=== PATIENT | female | born 1985 | race Caucasian/White ===

== ENCOUNTER 2018-04-11 08:08 | Emergency (ER) | payer OTHER ==
[2018-04-11 08:57] LABS: URINE HCG POC HCG NEGATIVE (Negative)
[2018-04-11] MEDS: KETOROLAC 30 MG/ML INJ. IV ×2 (09:13)
[2018-04-11] MEDS: PROCHLORPERAZINE 10 MG/2 ML VIAL. IV ×2 (10:15)
[2018-04-11] MEDS: diphenhydrAMINE 50 MG/ML VIAL IVP ×2 (10:15)
[2018-04-11] MEDS: IV NORMAL SALINE 1000ML BAG 1,000 ML IV ×2 (10:16)
== END 2018-04-11 11:17 | disposition home or self-care (01) ==
LOC: ER 08:08
DX: G43.909 Migraine, unspecified, not intractable, without status migrainosus (principal); R51 Headache (principal); F41.9 Anxiety disorder, unspecified; F32.9 Major depressive disorder, single episode, unspecified; E11.9 Type 2 diabetes mellitus without complications
CPT/HCPCS: 81025; 96374; 96375; 99284; J0780; J1200; J1885; J7030

== ENCOUNTER → 2020-03-21 | Outpatient (CLI) | payer OTHER ==
[2018-04-11 09:01] VITALS: BP 163/103
[~2020-03-21] MED LIST: ALPR1TAB2 PO; GLIM4TAB PO; LURA80TA PO; METF10007 PO; PARO25TA11 PO; SUMA100T3 PO; TOPI100T42 PO
--- NOTE | 2020-03-24 11:09 | EEG ---
DATE OF SERVICE: 03/21/2020 ELECTROENCEPHALOGRAM REPORT EEG NUMBER: [id number]. OBJECTIVE: The patient is a 35-year-old female with syncope. DESCRIPTION OF PROCEDURE: This is a digital study. Electrodes are placed according to the international 10-20 system. Bipolar and referential montages are available. INTERPRETATION: The waking background consists of 10-11 Hz, 50-100 microvolt activity, symmetrically distributed over parietooccipital regions and reactive to eye opening. Hyperventilation and intermittent photic stimulation are noncontributory. Stage 1 sleep is achieved with normal electroencephalogram patterns. EKG monitoring is carried out with a single electrode, which fails to reveal any arrhythmia. IMPRESSION: This electroencephalogram with the patient awake and asleep is within normal limits. There is no focal, paroxysmal, or epileptiform activity. Thank you for letting us help with the patient's care. MECHE SWAN MD DR: PRASHANTH/efe JOB#: [id number] / [id number]
== END | disposition home or self-care (01) ==
LOC: RT 09:19
PROVIDERS: ATTEND Psychiatry & Neurology Neurology with Special Qualifications in Child Neurology
DX: G43.809 Other migraine, not intractable, without status migrainosus (principal); H53.8 Other visual disturbances; R42 Dizziness and giddiness; R55 Syncope and collapse
CPT/HCPCS: 95816

== ENCOUNTER → 2020-05-01 | Outpatient (CLI) | payer OTHER ==
[2018-04-11 09:01] VITALS: BP 163/103
[~2020-05-01] MED LIST changes: +ARIP20TA5 PO; +BUPR100T7 PO; +CLONAZEPAM1 MG PO; +FERR-36 PO; +GABA300C18 PO; +LAMO200T25 PO; +METF500T16 PO; +MISO200T4 PO; +OXYC1TAB15 PO; +TRAZ300T2 PO
== END | disposition home or self-care (01) ==
LOC: LAB 14:28
PROVIDERS: ATTEND Obstetrics & Gynecology
DX: Z01.818 Encounter for other preprocedural examination (principal); Z11.59 Encounter for screening for other viral diseases
CPT/HCPCS: C9803-CS; U0003-CS

== ENCOUNTER 2020-05-08 07:19 | Day surgery (SDC) | payer OTHER ==
[~2020-05-08] VITALS: Ht 172.7 cm; Wt 100.9 kg
[~2020-05-08 07:19] MED LIST changes: +BUPIVACAINE-EPI 0.25%-1:200000 MPF 30 ML VIAL. ONE; +HYDROmorphone 2 MG/ML VIAL IV PRN; +IV RINGERS,LACTATED 1000ML 1,000 ML IV SCH; +METHYLENE BLUE 0.5% 10ml AMPULE. ONE; +MORPHINE SULFATE 2 MG/ML VIAL. IV PRN; +ONDANSETRON PF 4 MG/2 ML VIAL. IV PRN; -OXYC1TAB15 PO; +PROCHLORPERAZINE 10 MG/2 ML VIAL. IV PRN; +VASOPRESSIN 20 UNIT/ML VIAL. ONE; +fentaNYL PF VIAL 100 MCG/2 ML VIAL IV PRN
[2020-05-08] MEDS ORDERED: ceFAZolin 2GM PREMIX 2 GM/50 ML BAG IV ONE (08:00)
[2020-05-08] MEDS: INSULIN LISPRO 100 UNIT/ML 3ML VIAL for OP,RR ONLY. SQ PRN ×2 (08:21→11:01)
[2020-05-08 08:24] LABS: BASO % 1 % (0-3); EOS % 1 % (0-3); HEMATOCRIT 36.6 % (36.0-47.0); LYMPH # 1.9 x10^3/uL (1.0-4.8); LYMPH % 32 % (24-48); MEAN CORPUSCULAR HEMOGLOBIN 28 pg (25-35); MEAN CORPUSCULAR HGB CONC 33 g/dL (31-37); MEAN CORPUSCULAR VOLUME 84 fL (79-100); MONO # 0.4 x10^3/uL (0.0-1.1); MONO % 7 % (0-9); NEUT # 3.6 x10^3/uL (1.8-7.7); NEUT % 60 % (31-73); PLATELET COUNT 168 x10^3/uL (140-400); RED BLOOD COUNT 4.35 x10^6/uL (3.50-5.40)
[2020-05-08] MEDS ORDERED: ROCURONIUM 50 MG/5 ML VIAL. ONE (08:48)
[2020-05-08] MEDS ORDERED: PROPOFOL 10 MG/ML (20ML) VIAL. IV ONE (08:49)
[2020-05-08] MEDS ORDERED: DEXAMETHASONE SOD PHOS 4 MG/ML VIAL ONE (08:49)
[2020-05-08] MEDS ORDERED: LIDOCAINE 2% PF 5 ML VIAL. ONE (08:49)
[2020-05-08] MEDS ORDERED: KETOROLAC 30 MG/ML VIAL. ONE (08:49)
[2020-05-08] MEDS ORDERED: ONDANSETRON PF 4 MG/2 ML VIAL. ONE (08:49)
[2020-05-08] MEDS ORDERED: fentaNYL PF VIAL 100 MCG/2 ML VIAL ONE (09:18)
[2020-05-08] MEDS ORDERED: GLYCOPYRROLATE 1 MG/5 ML VIAL. ONE (09:45)
[2020-05-08] MEDS ORDERED: NEOSTIGMINE METHYLSULFATE 5 MG/5 ML SYRINGE. ONE (09:46)
--- NOTE | 2020-05-08 10:38 | PDOC ---
BRIEF OPERATIVE NOTE Date: May 08, 2020 Pre-Op Diagnosis pelvic pain, desires sterility, menorrhagia Post-Op Diagnosis same, mild endometriosis with mild left sided adhesions Procedure Performed operative scope, BTL, vapo endometriosis and lysis of adhesions with hysteroscopy and novasure endometrial ablation Surgeon Dr. Debbie Gaspar Commercial Lending Relationship Manager MARNIE Skaggs Anesthesiologist Dr. Milan Anesthesia Type: General Blood Loss 5cc IV Fluid see anesthesia records Urine Output 250cc straight cath prior to procedure Specimens Obtained none Findings mildly enlarged RV uterus, normal bilateral tubes and ovaries, mild endo on left ovary, mild left sided adhesions of colon to sidewall, mild endo in post cul-de-sac, uterus sounded to 10cc, functional length 6.5, width 4.5 ablation time 55 seconds Complications none Operative Note [id number] DEBBIE GASPAR MD May 08, 2020 10:38
[2020-05-08] MEDS ORDERED: HYDROcodone/APAP 5/325MG 1 TAB TABLET PO PRN (10:45)
[2020-05-08] MEDS ORDERED: MAG HYDROX/ALUMINUM HYD/SIMETH 30 ML ORAL.SUSP PO PRN (10:45)
[2020-05-08] MEDS ORDERED: diphenhydrAMINE HCL 25 MG CAPSULE PO PRN (10:45)
[2020-05-08] MEDS ORDERED: 0.9 % SODIUM CHLORIDE 10 ML DISP.SYRIN. IV PRN (10:45)
[2020-05-08] MEDS ORDERED: diphenhydrAMINE 50 MG/ML VIAL IV PRN (10:45)
[2020-05-08] MEDS ORDERED: SIMETHICONE 80 MG TAB.CHEW PO PRN (10:45)
[2020-05-08] MEDS ORDERED: NALOXONE 0.4 MG/ML VIAL. IV PRN (10:45)
[2020-05-08] MEDS ORDERED: CALCIUM CARBONATE 500 MG TAB.CHEW PO PRN (10:45)
[2020-05-08] MEDS: fentaNYL PF VIAL 100 MCG/2 ML VIAL IV PRN ×2 (10:46→10:54)
[2020-05-08] MEDS ORDERED: OXYC1TAB15 PO (10:59)
[2020-05-08] MEDS ORDERED: INSULIN LISPRO 100 UNIT/ML 3ML VIAL for OP,RR ONLY. SQ ONE (11:00)
[2020-05-08 11:20] VITALS: BP 120/68
--- NOTE | 2020-05-08 11:51 | OP ---
DATE OF SURGERY: 05/08/2020 PREOPERATIVE DIAGNOSES: Multiparity, desiring permanent sterility, menorrhagia and pelvic pain. POSTOPERATIVE DIAGNOSES: Multiparity, desiring permanent sterility, menorrhagia and pelvic pain with mild endometriosis and mild left-sided adhesions. PROCEDURE: Operative laparoscopy, bilateral tubal ligation, vaporization of endometriosis, lysis of adhesions and a hysteroscopy with NovaSure endometrial ablation. SURGEON: Kailash Gaspar MD VESSEL CAPTAIN: MARNIE Estrada ANESTHESIOLOGIST: Christian Milan MD ANESTHESIA: General. ESTIMATED BLOOD LOSS: 5 mL. URINE OUTPUT: 250 mL, straight cath, prior to procedure. IV FLUIDS: Please see anesthesia records. SPECIMENS: None. FINDINGS: A mildly enlarged retroverted uterus. Normal bilateral tubes and ovaries. She had mild endometriosis on the left ovary, mild left-sided adhesions of the colon to the sidewall, mild endometriosis in the posterior cul-de-sac. She had a mildly enlarged retroverted uterus that sounded to 10 cm, so the functional length by the NovaSure was set at 6.5, width 4.5, ablation time was 55 seconds. COMPLICATIONS: None. DESCRIPTION OF PROCEDURE: This patient was taken to the operating room, where general anesthesia was placed. The patient was placed in a dorsal lithotomy position in [facility]. The patient's abdomen and vagina were both prepped and draped in the normal sterile fashion and a straight cath urine was done with 250 mL urine output prior to my arrival. Upon my arrival, a timeout was performed. Once everyone agreed on patient, antibiotics, procedure, site and surgeon, the procedure was begun. We started with a bivalve speculum in the patient's vagina. A single-tooth tenaculum was used to grasp the anterior lip of the cervix. The Hegar dilators were used to dilate up to an 8-9. She sounded to 10 cm. The Valtchev uterine manipulator was placed through the endocervical os, locked on the single-tooth tenaculum, and the bivalve speculum was then removed. Top gloves were discarded and changed. Attention was then turned to the abdomen, where a small infraumbilical skin incision was made with the scalpel. The 5 mm Visiport was used directly to enter the abdominal cavity. Opening patient pressure was 5-6 mmHg. Carbon dioxide gas was used to then appropriately insufflate the abdominal cavity to maintain a pressure of 15 mmHg. The patient was placed in Trendelenburg position. Overheads were dimmed. The 5 mm port was placed, making a small incision above the suprapubic bone and placed under direct visualization; 4-5 mL of air was placed in the trocar cuff here. The scope was moved and looked at the umbilical port. It was in good placement in that port. Also, the trocar cuff was insufflated with 4-5 mL of air. At this point, the initial inspection was performed. Normal right upper quadrant; mild endo on the left ovary, but normal bilateral tubes; normal right ovary; ureters were seen low in the pelvis, normal; mildly enlarged retroverted uterus; normal bladder; and endo in the posterior cul-de-sac and on the uterosacral ligament under the uterus; and some left-sided adhesions of the colon to the left lower abdominal wall right above the infundibulopelvic ligament area. So, at this point, a right lower quadrant port was placed as well, there were no adhesions, transilluminating the abdominal wall, finding an area clear of any vasculature, making a small incision under direct visualization, insufflating that trocar with 4-5 mL of air. This was again a 5 mm atraumatic trocar placed under direct visualization without difficulty. At this point, the uterus was elevated. The posterior endometriosis was first cauterized and taking care of on the uterosacral ligament and in the posterior cul-de-sac. She also had a few, like, phleboliths, 1 on the colon going down into the rectum and 1 on the posterior uterus. The endometriosis on the left ovary was also cauterized. Once the endo was done, I used the Maryland to kind of help put tension on the filmy part, pulling the colon away from the sidewall and using the monopolar tip to cut right on the peritoneal edge and the filmy area to release the adhesion and gently pull them down off the sidewall. So, we did adhesiolysis, we did the vaporization of endo and then we ended with the bilateral tubal ligation. Mid ampullary area of both tubes were cauterized in 3 places, then cauterizing and cutting and burning one more time through and through till they no longer connected on both sides, and taking pictures of both tubes. Once this was done, the suprapubic port air was taken out. The trocar was deflated and removed. It was hemostatic. Same thing on the right lower quadrant, deflated the 4-5 mL of air out of the balloon and it was removed, hemostatic. Then, the trocar was deflated in the umbilical one, but the gas was released from this port first, then it was removed. All 3 port sites were closed with 4-0 nylon at the skin and injected with local. Attention was then turned vaginally, where the Valtchev was removed. A weighted speculum was placed in the patient's vagina. The hysteroscopy was performed. She had some tissue, but no other gross changes to the uterus. So, at this point, the NovaSure was obtained. The functional length was set at 6.5, she had already been dilated, the width settled at 4.5. The device was enabled. Cavity assessment check was performed. Once it passed the cavity assessment check, it went straight into the ablation process. Initially, it went off and the vacuum was on backwards that lasted 5 or 10 seconds, went off. So, it was flipped, restarted and then went another 45 seconds. So, it was about 55 seconds total for the ablation time. The device was removed. The tenaculum was removed. There was no active bleeding. So, the procedure was ended. Speculum was removed. All sponge, lap and needle counts were correct by OR personnel, and the patient is currently being awakened from anesthesia. KAILASH GASPAR MD DR: TANNER/efe JOB#: [id number] / [id number]
== END 2020-05-08 11:45 | disposition home or self-care (01) ==
LOC: SURG 07:19
PROVIDERS: ATTEND Obstetrics & Gynecology
DX: N92.0 Excessive and frequent menstruation with regular cycle (principal); Z64.1 Problems related to multiparity; N80.0 Endometriosis of uterus; N97.9 Female infertility, unspecified; F41.9 Anxiety disorder, unspecified; G43.909 Migraine, unspecified, not intractable, without status migrainosus
CPT/HCPCS: 36415; 58563; 58670; 81025; 82962; 85025; A7015; J0696; J1100; J1815; J1885; J2405; J2704; J2710; J3010; J3490; J7030; Q9968

== ENCOUNTER → 2021-01-09 | Outpatient (CLI) | payer OTHER ==
[~2021-01-09] MED LIST changes: -BUPIVACAINE-EPI 0.25%-1:200000 MPF 30 ML VIAL. ONE; +DEXT10TA23 PO; -HYDROmorphone 2 MG/ML VIAL IV PRN; -IV RINGERS,LACTATED 1000ML 1,000 ML IV SCH; -METHYLENE BLUE 0.5% 10ml AMPULE. ONE; +MISO200T16 PO; -MISO200T4 PO; -MORPHINE SULFATE 2 MG/ML VIAL. IV PRN; -ONDANSETRON PF 4 MG/2 ML VIAL. IV PRN; +OXYC1TAB15 PO; -PROCHLORPERAZINE 10 MG/2 ML VIAL. IV PRN; -VASOPRESSIN 20 UNIT/ML VIAL. ONE; -fentaNYL PF VIAL 100 MCG/2 ML VIAL IV PRN
[2021-01-09 11:58] LABS: BASO % 0 % (0-3); EOS % 1 % (0-3); HEMATOCRIT 37.7 % (36.0-47.0); HEMOGLOBIN 12.3 g/dL (12.0-15.5); LYMPH # 1.6 x10^3/uL (1.0-4.8); LYMPH % 31 % (24-48); MEAN CORPUSCULAR HEMOGLOBIN 28 pg (25-35); MEAN CORPUSCULAR HGB CONC 33 g/dL (31-37); MEAN CORPUSCULAR VOLUME 85 fL (79-100); MONO # 0.3 x10^3/uL (0.0-1.1); MONO % 6 % (0-9); NEUT # 3.1 x10^3/uL (1.8-7.7); NEUT % 61 % (31-73); PLATELET COUNT 182 x10^3/uL (140-400); RED BLOOD COUNT 4.46 x10^6/uL (3.50-5.40); RED CELL DISTRIBUTION WIDTH 14.6 % (11.5-14.5); WHITE BLOOD COUNT 5.1 x10^3/uL (4.0-11.0)
--- NOTE | 2021-01-09 11:59 | EKG ---
[facility] [address] [place] [address] Test Date: 2021-01-09 Test Time: 11:51:22 Pat Name: CHENCHO HAILE Department: Room: Gender: F Front Edger: : 1985 Requested By: KAILASH GASPAR Order Number: [id number] Reading MD: Fernando Arteaga MD Measurements Intervals [place] Rate: 51 P: 42 WV: 134 QRS: 10 QRSD: 90 T: 21 QT: 450 QTc: 417 Interpretive Statements SINUS RHYTHM POOR R-WAVE PROGRESSION RBBB Electronically Signed On 01-12-2021 16:14:58 FEATHERER by Fernando Arteaga MD
[2021-01-09 12:03] LABS: BILIRUBIN,URINE NEGATIVE (NEG); CLARITY,URINE CLEAR; COLOR,URINE YELLOW; NITRITE,URINE NEGATIVE (NEG); PROTEIN,URINE NEGATIVE (NEG-TRACE); UROBILINOGEN,URINE 0.2 mg/dL (0.2 mg/dL)
[2021-01-09 12:13] LABS: ALBUMIN 3.8 g/dL (3.4-5.0); CALCIUM 8.8 mg/dL (8.5-10.1); CREATININE 0.8 mg/dL (0.6-1.0); GFR 81.2; TOTAL BILIRUBIN 0.6 mg/dL (0.2-1.0); TOTAL PROTEIN 7.5 g/dL (6.4-8.2)
[2021-01-09 12:18] LABS: BACTERIA,URINE 0 /HPF (0-FEW); RBC,URINE OCC /HPF (0-2); WBC,URINE OCC /HPF (0-4)
--- NOTE | 2021-01-09 13:05 | RAD ---
INDICATION: Reason: PRE-OP HYSTERECTOMY 01/14. Instructions: / History: COMPARISON: February 2015 FINDINGS: 2 view of chest obtained. No focal airspace consolidation or pulmonary edema. Cardiac silhouette is similar to prior. Mild dege nerative changes the spine with osteophyte formation IMPRESSION: * No focal airspace consolidation or edema. Electronically signed by: Dl Dewitt MD (01/09/2021 1:03 PM) [id number]
== END ==
LOC: SURGPAT 11:11
PROVIDERS: ATTEND Obstetrics & Gynecology
DX: Z01.818 Encounter for other preprocedural examination (principal); M47.814 Spondylosis without myelopathy or radiculopathy, thoracic region; M25.78 Osteophyte, vertebrae; I45.10 Unspecified right bundle-branch block; E11.9 Type 2 diabetes mellitus without complications
CPT/HCPCS: 71046; 80053; 81001; 83036; 85025; 93005; U0003

== ENCOUNTER 2021-01-14 08:22 | Observation (INO) | payer OTHER ==
[2021-01-14] VITALS (8 sets, daily range): BP systolic 100–116; BP diastolic 63–75
[~2021-01-14] VITALS: Ht 172.7 cm; Wt 100.2 kg
[~2021-01-14 08:22] MED LIST changes: +IV RINGERS,LACTATED 1000ML 1,000 ML IV SCH; +MORPHINE SULFATE 2 MG/ML VIAL. IVP PRN; +PROCHLORPERAZINE 10 MG/2 ML VIAL. IVP PRN; +fentaNYL PF VIAL 100 MCG/2 ML VIAL IVP PRN
[2021-01-14] MEDS ORDERED: PROPOFOL 10 MG/ML (20ML) VIAL. IV ONE (08:24)
[2021-01-14] MEDS ORDERED: ONDANSETRON PF 4 MG/2 ML VIAL. ONE (08:24)
[2021-01-14] MEDS ORDERED: DEXAMETHASONE SOD PHOS 4 MG/ML VIAL ONE (08:24)
[2021-01-14] MEDS ORDERED: LIDOCAINE 2% PF 5 ML VIAL. ONE (08:24)
[2021-01-14] MEDS ORDERED: ROCURONIUM 50 MG/5 ML VIAL. ONE (08:24)
[2021-01-14] MEDS ORDERED: MIDAZOLAM HCL/PF 2 MG/2 ML VIAL. ONE (08:26)
[2021-01-14] MEDS ORDERED: fentaNYL PF VIAL 100 MCG/2 ML VIAL ONE ×2 (08:26→11:01)
[2021-01-14] MEDS ORDERED: INSULIN LISPRO 100 UNIT/ML 3ML VIAL for OP,RR ONLY. SQ PRN (09:00)
[2021-01-14] MEDS ORDERED: INDIGOTINDISULFONATE SODIUM 40 MG/5 ML AMPUL. ONE (10:12)
[2021-01-14] MEDS ORDERED: ESTROGENS, CONJ VAGINAL CREAM 30GM TUBE. ONE (10:12)
[2021-01-14] MEDS ORDERED: BUPIVACAINE-EPI 0.25% 30 ML VIAL KIT. ONE (10:12)
[2021-01-14] MEDS ORDERED: SEVOFLURANE > 120 MINUTES. IH ONE (11:21)
[2021-01-14] MEDS ORDERED: NEOSTIGMINE METHYLSULFATE 5 MG/5 ML SYRINGE. ONE (11:23)
--- NOTE | 2021-01-14 12:56 | PDOC ---
BRIEF OPERATIVE NOTE Date: Jan 14, 2021 Pre-Op Diagnosis endometriosis, pelvic pain Post-Op Diagnosis same Procedure Performed LAVH/BSO Surgeon Dr. Clark Hot Plate Plywood Press Operator MARNIE Hill Anesthesiologist Dr. Milan Anesthesia Type: General Blood Loss 50cc IV Fluid 700cc Urine Output 300cc clear via moulton Specimens Obtained cervix, uterus, bilateral tubes and ovaries, round hard deposit on left sidewall below ureter Findings RV uterus, normal bilateral tubes and ovaries; small calcium deposit on left sidewall removed and one on larrge bowel seen also Complications none Operative Note [id number] KAILASH CLARK MD Jan 14, 2021 12:56
[2021-01-14] MEDS ORDERED: LACTULOSE 20 GM/30 ML SOLUTION. PO PRN (13:00)
[2021-01-14] MEDS ORDERED: CALCIUM CARBONATE 500 MG TAB.CHEW PO PRN (13:00)
[2021-01-14] MEDS ORDERED: HYDROcodone/APAP 5/325MG 1 TAB TABLET PO PRN (13:00)
[2021-01-14] MEDS ORDERED: NALOXONE 0.4 MG/ML VIAL. IV PRN (13:00)
[2021-01-14] MEDS ORDERED: ZOLPIDEM 5 MG TABLET. PO PRN (13:00)
[2021-01-14] MEDS ORDERED: diphenhydrAMINE HCL 25 MG CAPSULE PO PRN (13:00)
[2021-01-14] MEDS ORDERED: ONDANSETRON PF 4 MG/2 ML VIAL. IV PRN (13:00)
[2021-01-14] MEDS ORDERED: MAG HYDROX/ALUMINUM HYD/SIMETH 30 ML ORAL.SUSP PO PRN (13:00)
[2021-01-14] MEDS ORDERED: diphenhydrAMINE 50 MG/ML VIAL IV PRN (13:00)
[2021-01-14] MEDS ORDERED: 0.9 % SODIUM CHLORIDE 10 ML DISP.SYRIN. IV PRN (13:00)
[2021-01-14] MEDS ORDERED: SIMETHICONE 80 MG TAB.CHEW PO PRN (13:00)
[2021-01-14] MEDS ORDERED: MAGNESIUM HYDROXIDE 2,400 MG/30 ML ORAL.SUSP. PO PRN (13:00)
[2021-01-14] MEDS ORDERED: INSULIN LISPRO 100 UNIT/ML 3ML VIAL for OP,RR ONLY. SQ ONE (13:15)
[2021-01-14] MEDS: MORPHINE SULFATE 2 MG/ML VIAL. IV PRN ×3 (13:29→23:41)
--- NOTE | 2021-01-14 13:36 | OP ---
DATE OF SURGERY: 01/14/2021 PREOPERATIVE DIAGNOSIS: Known endometriosis by laparoscopy with pelvic pain, desiring definitive therapy. POSTOPERATIVE DIAGNOSIS: Known endometriosis by laparoscopy with pelvic pain, desiring definitive therapy.. PROCEDURE: Laparoscopic-assisted vaginal hysterectomy, bilateral salpingo-oophorectomy, and removal of the calcium or hard deposit on the left pelvic sidewall. SURGEON: Kailash Clark MD OPEN HEARTH HELPER: MARNIE Santiago ANESTHESIOLOGIST: Christian Milan MD ANESTHESIA: General. ESTIMATED BLOOD LOSS: 50 mL. URINE OUTPUT: 300 mL clear via Aceves catheter. INTRAVENOUS FLUIDS: 700 mL. SPECIMENS: Cervix, uterus, bilateral tubes and ovaries and that little round hard deposit on the left sidewall and the deposit on the left sidewall was below the ureter. FINDINGS: A retroverted uterus, normal bilateral tubes and ovaries. A small calcium deposit on the left sidewall that was removed as well as one on the large bowel was also seen, but that one was not touched. COMPLICATIONS: None. DESCRIPTION OF PROCEDURE: This patient was taken to the operating room where general anesthesia was placed. The patient was placed in the dorsal lithotomy position in [facility]. The patient's abdomen and vagina were both prepped and draped in the normal sterile fashion and a Aceves catheter was inserted under sterile technique. Upon my arrival, a timeout was performed. Once everyone agreed on the patient, the site, the procedure, and antibiotics, the procedure was initiated. A bivalve speculum was placed in the patient's vagina. A single-tooth tenaculum was used to grasp the anterior lip of the cervix. A 10 mL of 0.25% Marcaine with epinephrine was used to circumferentially inject around the cervix for both hemodissection and hemostatic purposes later. The Valtchev uterine manipulator was placed through the endocervical os, locked on the single tooth tenaculum and the bivalve speculum was then removed. Top gloves were discarded and changed. She was injected over her prior incision site infraumbilically. Then, a small incision was made over the existing scar. Curved Xin was used to dissect through the subcuticular layer to the fascia. The 5 mm Visiport was used to directly enter the abdominal cavity. Opening patient pressure was 5-6 mmHg. Carbon dioxide gas was used to then appropriately insufflate the abdominal cavity to maintain a pressure of 15 mmHg. The patient was placed in Trendelenburg position. Her right lower quadrant port was seen from her prior laparoscopy. It was clear of adhesions on the inside, so it was also injected. Small incision was made over it and it was placed under direct visualization as well. Then, the left side was done after transilluminating the abdominal wall, finding an area clear of any vasculature, injecting it, making a small incision and placing the 5 mm trocar under direct visualization. The right and left lower quadrant ones were insufflated with 4-5 mL of air while watching. The camera was then moved laterally to one of the ports to look at the umbilical port. Once it was clear, it also was filled with the 4-5 mL of air in the trocar cuff. Camera was moved back to the midline. The patient again was in Trendelenburg and we looked at both tubes and ovaries, looked under it. There was a calcium deposit on the left sidewall that was grasped with a Maryland and easily taken off and put in the posterior cul-de-sac. The ureter was seen coursing above it on the left side. Ureter was also seen on the right side. Both ovaries were well out of the way and above the ureters as she desired to have both tubes and ovaries out. So, starting on the left side, elevating the left tube and ovary, staying high on the infundibulopelvic ligament, cauterizing and cutting with the LigaSure, going all the way over, crossing the left round ligament, cauterizing and cutting, then pushing the uterus cephalad and creating that bladder flap sharply by elevating it with the Maryland and using the monopolar hook to cut across and pulled gently pull down. Then the right side tube and ovary were elevated. Again, the ureter was seen below it, staying high on the IP ligament, cauterizing and cutting, taking the tube and ovary per patient request, going all the way over to the uterus, then crossing the right round ligament as well, going down and further meeting that bladder flap anteriorly. Once all of this was done, the uterine vessels were obtained on the right side, crossing and then staying inside this pedicle kind of going posterior down and staying right on the cervix and inside that going through the cardinal and broad ligaments, cauterizing and cutting until right above the level of the uterosacral and then crossing contralaterally hugging the cervix and uterus, getting the uterine, staying inside that pedicle and watching the cervix bulge posteriorly and going down through the cardinal and broad ligament, staying vertical right inside that making sure the bladder was down anteriorly and then hugging the cervix posteriorly, cauterizing and cutting until right above the uterosacral and the left side as well. Once all of this was done, the uterus was free and it was completely mobile and blanched, all instruments were removed from the abdomen and attention was turned vaginally. The single tooth and Valtchev were removed. A weighted speculum was placed in the patient's vagina. Thyroid Yaneth clamps were placed on the anterior and posterior lips of the cervix respectively. A scalpel was used to make a circumferential incision in the cervix. An open Ray-Deandre 4 x 4 was used to gently push up the anterior bladder peritoneum and the anterior cul-de-sac was digitally and bluntly entered. The Ray-Deandre was removed and the curved Umer was placed in the anterior cul-de-sac. Cervix was elevated and the posterior cul-de-sac was sharply entered with curved Gilbert scissors. Once this was done, the posterior peritoneum was attached to the posterior cuff with an 0 Vicryl and was tagged with a curved Xin clamp and the needle was cut and passed off. Once this was done, the short weighted speculum was removed and replaced with the long weighted Mg speculum in the posterior cul-de-sac. Curved Elizabeth clamps x 2 were placed on the patient's left uterosacral ligament where they were doubly clamped with curved Heaneys, cut with curved Gilbert scissors and suture ligated x 2 with 0 Vicryl. Second one was taken through the vaginal cuff securing uterosacral ligament to the vaginal cuff, tagging it with a straight Xin clamp and cutting and passing the needle off. This was done exactly the same on the right side, double clamping the uterosacrals with curved Elizabeth's, cutting with curved Gilbert scissors, suture ligating x 2 with 0 Vicryl, taking the second one through the vaginal cuff, securing uterosacral ligament to the vaginal cuff, tagging it with a straight Xin clamp and cutting and passing the needle off. The remaining pedicle on both sides was delineated with the right angle Mixter. The vaginal LigaSure was used to cauterize and cut the remaining pedicle. Cervix, uterus, bilateral tubes and ovaries were delivered in total and passed off for permanent pathology. Also, that little round phlebolith had been seen as soon as I entered the posterior cul-de-sac initially and it was cut and passed off that calcium kind of deposit from the left sidewall. At this point, a sponge stick was used to push up the bowel and the long Allis was used to grasp the anterior bladder peritoneum. The pedicles were examined. Once they were hemostatic, a 2-0 Vicryl was taken through the anterior bladder peritoneum, left uterosacral ligament, posterior peritoneum and right uterosacral ligament, thus closing the peritoneum in a pursestring like fashion. Before doing this, I did place a little interrupted sutures securing the lateral peritoneal edges to the vaginal cuff and then I closed the peritoneum. The right and left uterosacral tags were clipped. A full length 2-0 Vicryl was used to close the cuff in a running locked fashion and an imbricating stitch in the middle was placed for excellent hemostasis and results. Once this was done, a sponge stick was used to examine the cuff and it was hemostatic. All sponge, lap and needle counts were correct x 2 by OR personnel. At this point, all gloves were discarded and changed and attention was turned back above for a second look. The patient was placed back in Trendelenburg. Overhead lights were dimmed. Gas was reinsufflated and the scope was inserted down the trocar of the umbilical port and hemostasis was indeed assured. There was no bleeding. Right and left pericolic gutters, cul-de-sac, everything was dry and clear. Copious irrigation revealed hemostasis as well as clear fluid. Tisseel was placed over the remaining pedicles with excellent results. Right and left lower quadrant ports, the air was taken out of them and they were deflated. They were taken out under direct visualization and they were hemostatic. The gas was taken out of the trocar cuff on the umbilical port. Gas was released from this port. Once all the gas was out, it was removed as well. All three port sites were closed with 4-0 nylon at the skin and they had already been injected with local at the beginning prior to the incisions. At this point, the patient was awakened from anesthesia and is being brought to recovery room in stable condition. KAILASH CLARK MD DR: TANNER/efe JOB#: [id number] / [id number]
[2021-01-14] MEDS ORDERED: HYDROmorphone 2 MG/ML VIAL ONE (13:47)
[2021-01-14] MEDS: HYDROmorphone 2 MG/ML VIAL IVP PRN ×2 (13:48→14:04)
--- NOTE | 2021-01-14 14:30 | NUR ---
Arrived to unit by bed from PACU. Drowsy but awakens easily and falls back to sleep. No c/o at this time. Abdominal Lap sites are D/I x's 3 and has ice pack on SCD's on bilaterally. IVF's intact and infusing. O2 at 2l per n/c and sating at 95%. Side rails up x's 2 with call light in reach. Spouse at bedside. Cont. monitor.
[2021-01-14] MEDS ORDERED: ESTRADIOL WEEKLY 0.1 MG PATCH. TD SCH (15:00)
[2021-01-14] MEDS: oxyCODONE/APAP 5/325 1 TAB TABLET PO PRN ×2 (17:06→21:21)
--- NOTE | 2021-01-14 18:10 | NUR ---
Ambulated to bathroom and unable to void at this time. IVF's infusing and encouraged to increase po fluids. Cont. monitor.
--- NOTE | 2021-01-14 20:00 | NUR ---
Patient has flat affect and is poor historian. 3 lap site dressings D/I. Spotty bloody drainage to pad. IVF patent per 24g cath in finger.
[2021-01-15] VITALS (7 sets, daily range): BP systolic 74–115; BP diastolic 40–71
--- NOTE | 2021-01-15 02:05 | NUR ---
Assisted to toilet by NEIDA Fernandez, who said she ambulated without difficulty. Patient pulled bathroom call light, this RN found patient sitting on floor, seemingly asleep. obed Flores supervisor grips, Rebecca CARRASQUILLO and I assisted this patient to recliner then to bed. Patient states she "just fell asleep while standing in the bathroom." States she "hit her head on the metal thing behind the toilet." HELEN, thin red abrasion along right jaw. No increase in vag bleeding. Patient oriented.
[2021-01-15] MEDS: oxyCODONE/APAP 5/325 1 TAB TABLET PO PRN ×3 (02:54→08:32)
--- NOTE | 2021-01-15 03:10 | NUR ---
Dr. Clark informed of events by obed Flores. Order's rec'd.
--- NOTE | 2021-01-15 03:15 | NUR ---
Dr. Ibanez consulted. obed Flores super notified him of events/consult. Orders rec'd.
--- NOTE | 2021-01-15 03:42 | NUR ---
Assisted to w/c, taken to CT per WC w/ O2 by obed Flores. Orders to transfer pt to [facility], room 536.
--- NOTE | 2021-01-15 03:51 | NUR ---
Transfer to 536 per w/c.
--- NOTE | 2021-01-15 03:52 | RAD ---
STUDY: CT head without contrast INDICATION: Syncope. Fall. COMPARISON: None. TECHNIQUE: Axial CT imaging through the head without the use of intravenous contrast. Sagittal and co simi reformats were obtained. One or more of the following individualized dose reduction techniques were utilized for this examinat ion: 1. Automated exposure control 2. Adjustment of the mA and/or kV according to patient size 3. Use of iterative reconstruction technique. FINDINGS: No acute intracranial hemorrhage. No mass effect, midline shift or hydrocephalus. Cheney-white matter d ifferentiation is maintained. Unremarkable calvarium. No layering fluid seen within the visualized paranasal sinuses. Unremarkable mastoid air cells and middle ears. IMPRESSION: No acute intracranial abnormality by CT. Electronically signed by: JEANNE LINDER MD (01/15/2021 3:50 AM) [facility]
--- NOTE | 2021-01-15 04:00 | NUR ---
Rec'd patient, America Briceño, 35 y/o, to room 536, per w/c, accompanied by JOLENE Flores, assisted to bed using gait belt, engineering department chair placed, vitals obtained=T 99.0, 99% on 4L N/C, B/p 103/58 (NS bolus completed), HR 75, RR 20, Oxygen turned down to 3 Liters, monitoring-sr with occ haylee, PVC's, personal belongings with patient, plan of care discussed,
[2021-01-15 04:04] LABS: BASO % 0 % (0-3); EOS % 0 % (0-3); HEMATOCRIT 36.8 % (36.0-47.0); HEMOGLOBIN 12.2 g/dL (12.0-15.5); LYMPH # 0.9 x10^3/uL (1.0-4.8); LYMPH % 8 % (24-48); MEAN CORPUSCULAR HEMOGLOBIN 28 pg (25-35); MEAN CORPUSCULAR HGB CONC 33 g/dL (31-37); MEAN CORPUSCULAR VOLUME 85 fL (79-100); MONO # 0.4 x10^3/uL (0.0-1.1); MONO % 4 % (0-9); NEUT # 10.2 x10^3/uL (1.8-7.7); NEUT % 88 % (31-73); PLATELET COUNT 172 x10^3/uL (140-400); RED BLOOD COUNT 4.34 x10^6/uL (3.50-5.40); RED CELL DISTRIBUTION WIDTH 14.5 % (11.5-14.5); WHITE BLOOD COUNT 11.7 x10^3/uL (4.0-11.0)
[2021-01-15 04:16] LABS: CALCIUM 8.3 mg/dL (8.5-10.1); CREATININE 0.9 mg/dL (0.6-1.0); GFR 70.8; POTASSIUM 4.4 mmol/L (3.5-5.1)
--- NOTE | 2021-01-15 04:30 | NUR ---
Patient is assessed, (lap sites x 3 assessed upon transfer to unit, small shadow drng on one site), percocet x 1 given, as she had one, and with transfer, her pain increased. was given choice of lortab or percocet, and she said the percocet had helped, discussed the use of IS, the mechanism is taken out of the bag, placed on the bedside table, she verbalizes she will use it. call light at bedside, bed alarm is engaged.
[2021-01-15 04:42] LABS: % BANDS 7 % (0-9); % BASOS 1 % (0-3); % LYMPHS 12 % (24-48); % MONOS 5 % (0-10); % SEGS 75 % (35-66)
[2021-01-15 04:43] LABS: PLT ESTIMATE ADEQUATE (ADEQUATE); TOXIC VACUOLATION SLIGHT
[2021-01-15] MEDS ORDERED: ARIPiprazole 5 MG TABLET PO SCH (08:00)
--- NOTE | 2021-01-15 10:50 | NUR ---
SS following for discharge planning. SS reviewed pt chart and discussed with pt RN. Pt is from home and is currently on room air. Probable discharge to home with self care today.
--- NOTE | 2021-01-15 11:12 | PDOC ---
[employer] PROGRESS NOTE Date of Service DOS: DATE: 01/15/21 TIME: 11:09 Chief Complaint Chief Complaint Endometriosis and pelvic pain History of Present Illness History of Present Illness 01/15/2021 Patient seen and examined Patient had loved one present, we discussed d/c later today if cleared by surgery DWRN Chart reviewed Vitals/I&O Vitals/I&O: Vital Signs Date Time Temp Pulse Resp B/P (MAP) Pulse Ox O2 Delivery O2 Flow Rate FiO2 01/15/21 09:58 Nasal Cannula 2.0 01/15/21 07:00 98.7 81 18 104/58 (73) 99 98.7 I & O 01/14/21 01/14/21 01/15/21 15:00 23:00 07:00 Intake Total 900 ml 880 ml 600 ml Output Total 350 ml 400 ml 500 ml Balance 550 ml 480 ml 100 ml Physical Exam General: Alert, Cooperative, No acute distress Heart: Regular rate, Normal S1, Normal S2 Lungs: Clear Abdomen: Other (3 laproscopic incision sites healing well) Extremities: No tenderness/swelling Skin: No significant lesion Labs Labs: Laboratory Tests Test 01/14/21 13:03 01/14/21 16:48 01/15/21 02:18 01/15/21 03:50 Glucose (Fingerstick) 193 mg/dL (70-99) 157 mg/dL (70-99) 146 mg/dL (70-99) White Blood Count 11.7 x10^3/uL (4.0-11.0) Red Blood Count 4.34 x10^6/uL (3.50-5.40) Hemoglobin 12.2 g/dL (12.0-15.5) Hematocrit 36.8 % (36.0-47.0) Mean Corpuscular Volume 85 fL (79-100) Mean Corpuscular Hemoglobin 28 pg (25-35) Mean Corpuscular Hemoglobin Concent 33 g/dL (31-37) Red Cell Distribution Width 14.5 % (11.5-14.5) Platelet Count 172 x10^3/uL (140-400) Neutrophils (%) (Auto) 88 % (31-73) Lymphocytes (%) (Auto) 8 % (24-48) Monocytes (%) (Auto) 4 % (0-9) Eosinophils (%) (Auto) 0 % (0-3) Basophils (%) (Auto) 0 % (0-3) Neutrophils # (Auto) 10.2 x10^3/uL (1.8-7.7) Lymphocytes # (Auto) 0.9 x10^3/uL (1.0-4.8) Monocytes # (Auto) 0.4 x10^3/uL (0.0-1.1) Eosinophils # (Auto) 0.0 x10^3/uL (0.0-0.7) Basophils # (Auto) 0.0 x10^3/uL (0.0-0.2) Segmented Neutrophils % 75 % (35-66) Band Neutrophils % 7 % (0-9) Lymphocytes % 12 % (24-48) Monocytes % 5 % (0-10) Basophils % 1 % (0-3) Toxic Vacuolation Slight Platelet Estimate Adequate (ADEQUATE) Sodium Level 138 mmol/L (136-145) Potassium Level 4.4 mmol/L (3.5-5.1) Chloride Level 103 mmol/L (98-107) Carbon Dioxide Level 28 mmol/L (21-32) Anion Gap 7 (6-14) Blood Urea Nitrogen 6 mg/dL (7-20) Creatinine 0.9 mg/dL (0.6-1.0) Estimated GFR (Cockcroft-Gault) 70.8 Glucose Level 139 mg/dL (70-99) Calcium Level 8.3 mg/dL (8.5-10.1) Test 01/15/21 07:40 Glucose (Fingerstick) 125 mg/dL (70-99) Review of Systems Review of Systems: Patient denied fever or nausea Assessment and Plan Assessmemt and Plan Assessment Endometriosis Pelvic pain UTI Anxiety Migraines Dysmenorrhea Menorrhagia Sterilization Plan D/c later today if cleared with surgery Cont pain medication PRN Cont DVT prophylaxis Cont home meds Full code Comment Review of Relevant I have reviewed the following items kelsie (where applicable) has been applied. Medications: Current Medications Medications (Trade) Dose Ordered Sig/Nuzhat Route PRN Reason Start Time Stop Time Status Last Admin Dose Admin Zolpidem Tartrate (Ambien) 5 mg PRN QHS PRN PO INSOMNIA 01/14/21 13:00 01/14/21 21:21 Potassium Chloride/Sodium Chloride 1,000 ml @ 125 mls/hr Q8H IV 01/14/21 13:00 01/14/21 14:45 Morphine Sulfate (Morphine Sulfate) 2 mg PRN Q1HR PRN IV PAIN SEVERE 01/14/21 13:00 01/14/21 23:41 Oxycodone/ Acetaminophen (Percocet 5/325) 2 tab PRN Q4HRS PRN PO MODERATE PAIN, SEVERE PAIN 01/14/21 13:00 01/15/21 08:32 Estradiol (Climara Weekly) 0.1 mg WEEKLY TD 01/14/21 15:00 01/14/21 17:08 Justifications for Admission Other Justification MICHELET LIU III DO Jan 15, 2021 11:12
--- NOTE | 2021-01-15 11:55 | NUR ---
Discharge Note: CHENCHO HAILE Discharge instructions and discharge home medications reviewed with Patient and a copy given. All questions have been answered and understanding verbalized. The following instructions and handouts were given: discharge instructions, education and follow up recommendations. Discontinued lines and drains: Peripheral IV discontinued intact. Patient discharged to Home or Self Care with Spouse via Wheelchair
[2021-01-15] MEDS ORDERED: FERROUS SULFATE 325 MG TABLET. PO SCH (12:00)
[2021-01-15] MEDS ORDERED: lamoTRIgine 100 MG TABLET. PO SCH (12:00)
[2021-01-15] MEDS ORDERED: GABAPENTIN 300 MG CAPSULE. PO SCH (14:00)
[2021-01-15] MEDS ORDERED: clonazePAM 0.5 MG TABLET PO SCH (14:00)
--- NOTE | 2021-01-15 14:28 | PDOC ---
SURGICAL PROGRESS NOTE DATE: 01/15/21 TIME: 14:21 Subjective Pt was up in chair feeling better upon my arrival this morning. Overnight she had a syncopal episode about 0200am where the RN found her on the floor and had hit her face. lytes/CBC/blood glucose all ordered and OK this am , BP responded with fluid bolus and the Hospitalist consulted also. Head CT was ordered and was done and negative upon my exam this am. So I said from surgical perspective she was ok but wanted hospitalist to see her and make sure from the syncope and fall she was ok to go as well. He saw and examined her during my surgery this am and she was allowed to go home. Scant VB, tolerating PO, now steady on feet and voiding without catheter. Vital Signs Vital Signs Date Time Temp Pulse Resp B/P (MAP) Pulse Ox O2 Delivery O2 Flow Rate FiO2 01/15/21 11:00 98.6 75 18 89/45 (60) 96 Room Air 98.6 01/15/21 09:58 2.0 I&O Intake and Output 01/15/21 07:00 Intake Total 2380 ml Output Total 1250 ml Balance 1130 ml Intake Oral 1480 ml IV Total 900 ml Output Urine Total 1200 ml Estimated Blood Loss 50 ml # Voids 1 PATIENT HAS A BOWLES: No General: Alert, Oriented X3, Cooperative, No acute distress Heart: Regular rate Abdomen: Soft, No tenderness, Other (all port sites c/d/i ) Extremities: No clubbing, No cyanosis, No edema Neuro: Normal speech Psych/Mental Status: Mental status NL, Mood NL Labs Laboratory Tests Test 01/14/21 08:47 01/14/21 09:09 01/14/21 13:03 01/14/21 16:48 Bedside Urine HCG, Qualitative Hcg negative (Negative) Glucose (Fingerstick) 94 mg/dL (70-99) 193 mg/dL (70-99) 157 mg/dL (70-99) Test 01/15/21 02:18 01/15/21 03:50 01/15/21 07:40 Glucose (Fingerstick) 146 mg/dL (70-99) 125 mg/dL (70-99) White Blood Count 11.7 x10^3/uL (4.0-11.0) Red Blood Count 4.34 x10^6/uL (3.50-5.40) Hemoglobin 12.2 g/dL (12.0-15.5) Hematocrit 36.8 % (36.0-47.0) Mean Corpuscular Volume 85 fL (79-100) Mean Corpuscular Hemoglobin 28 pg (25-35) Mean Corpuscular Hemoglobin Concent 33 g/dL (31-37) Red Cell Distribution Width 14.5 % (11.5-14.5) Platelet Count 172 x10^3/uL (140-400) Neutrophils (%) (Auto) 88 % (31-73) Lymphocytes (%) (Auto) 8 % (24-48) Monocytes (%) (Auto) 4 % (0-9) Eosinophils (%) (Auto) 0 % (0-3) Basophils (%) (Auto) 0 % (0-3) Neutrophils # (Auto) 10.2 x10^3/uL (1.8-7.7) Lymphocytes # (Auto) 0.9 x10^3/uL (1.0-4.8) Monocytes # (Auto) 0.4 x10^3/uL (0.0-1.1) Eosinophils # (Auto) 0.0 x10^3/uL (0.0-0.7) Basophils # (Auto) 0.0 x10^3/uL (0.0-0.2) Segmented Neutrophils % 75 % (35-66) Band Neutrophils % 7 % (0-9) Lymphocytes % 12 % (24-48) Monocytes % 5 % (0-10) Basophils % 1 % (0-3) Toxic Vacuolation Slight Platelet Estimate Adequate (ADEQUATE) Sodium Level 138 mmol/L (136-145) Potassium Level 4.4 mmol/L (3.5-5.1) Chloride Level 103 mmol/L (98-107) Carbon Dioxide Level 28 mmol/L (21-32) Anion Gap 7 (6-14) Blood Urea Nitrogen 6 mg/dL (7-20) Creatinine 0.9 mg/dL (0.6-1.0) Estimated GFR (Cockcroft-Gault) 70.8 Glucose Level 139 mg/dL (70-99) Calcium Level 8.3 mg/dL (8.5-10.1) Laboratory Tests Test 01/14/21 16:48 01/15/21 02:18 01/15/21 03:50 01/15/21 07:40 Glucose (Fingerstick) 157 mg/dL (70-99) 146 mg/dL (70-99) 125 mg/dL (70-99) White Blood Count 11.7 x10^3/uL (4.0-11.0) Red Blood Count 4.34 x10^6/uL (3.50-5.40) Hemoglobin 12.2 g/dL (12.0-15.5) Hematocrit 36.8 % (36.0-47.0) Mean Corpuscular Volume 85 fL (79-100) Mean Corpuscular Hemoglobin 28 pg (25-35) Mean Corpuscular Hemoglobin Concent 33 g/dL (31-37) Red Cell Distribution Width 14.5 % (11.5-14.5) Platelet Count 172 x10^3/uL (140-400) Neutrophils (%) (Auto) 88 % (31-73) Lymphocytes (%) (Auto) 8 % (24-48) Monocytes (%) (Auto) 4 % (0-9) Eosinophils (%) (Auto) 0 % (0-3) Basophils (%) (Auto) 0 % (0-3) Neutrophils # (Auto) 10.2 x10^3/uL (1.8-7.7) Lymphocytes # (Auto) 0.9 x10^3/uL (1.0-4.8) Monocytes # (Auto) 0.4 x10^3/uL (0.0-1.1) Eosinophils # (Auto) 0.0 x10^3/uL (0.0-0.7) Basophils # (Auto) 0.0 x10^3/uL (0.0-0.2) Segmented Neutrophils % 75 % (35-66) Band Neutrophils % 7 % (0-9) Lymphocytes % 12 % (24-48) Monocytes % 5 % (0-10) Basophils % 1 % (0-3) Toxic Vacuolation Slight Platelet Estimate Adequate (ADEQUATE) Sodium Level 138 mmol/L (136-145) Potassium Level 4.4 mmol/L (3.5-5.1) Chloride Level 103 mmol/L (98-107) Carbon Dioxide Level 28 mmol/L (21-32) Anion Gap 7 (6-14) Blood Urea Nitrogen 6 mg/dL (7-20) Creatinine 0.9 mg/dL (0.6-1.0) Estimated GFR (Cockcroft-Gault) 70.8 Glucose Level 139 mg/dL (70-99) Calcium Level 8.3 mg/dL (8.5-10.1) I have reviewed the following labs, vitals, nursing, head CT and consult note Cardiovascular: Syncope Endocrine: Diabetes Problem List endometriosis and pelvic pain Assessment/Plan POD#1 s/p LAVH/BSO syncopal episode this am [address], normal lytes, blood glucose, hemaglobin seen by hospitalist and cleared for discharge Routine PO care d/c to home NPV x 6 weeks light/limited activity x 2 weeks no lifting>15lbs keep scheduled follow up in one week already has narcotic pain med yuliana or return sooner for any other questions or concerns not limited to but including, pain unrelieved with pain meds, increased or unexplained VB, T>100.4 Justicifation of Admission Dx: Justifications for Admission: Justification of Admission Dx: Yes KAILASH GASPAR MD Jan 15, 2021 14:28
--- NOTE | 2021-01-15 14:33 | PDOC3 ---
Discharge Summary Visit Information Date of Admission: Jan 14, 2021 Date of Discharge: Jan 15, 2021 Final Diagnosis pelvic pain and endometriosis Brief Hospital Course Allergies Allergies Coded Allergies Type Severity Reaction Last Updated Verified No Known Drug Allergies 01/14/21 No Vital Signs Vital Signs Date Time Temp Pulse Resp B/P (MAP) Pulse Ox O2 Delivery O2 Flow Rate FiO2 01/15/21 11:00 98.6 75 18 89/45 (60) 96 Room Air 98.6 01/15/21 09:58 2.0 Lab Results Laboratory Tests Test 01/14/21 08:47 01/14/21 09:09 01/14/21 13:03 01/14/21 16:48 Bedside Urine HCG, Qualitative Hcg negative (Negative) Glucose (Fingerstick) 94 mg/dL (70-99) 193 mg/dL (70-99) 157 mg/dL (70-99) Test 01/15/21 02:18 01/15/21 03:50 01/15/21 07:40 Glucose (Fingerstick) 146 mg/dL (70-99) 125 mg/dL (70-99) White Blood Count 11.7 x10^3/uL (4.0-11.0) Red Blood Count 4.34 x10^6/uL (3.50-5.40) Hemoglobin 12.2 g/dL (12.0-15.5) Hematocrit 36.8 % (36.0-47.0) Mean Corpuscular Volume 85 fL (79-100) Mean Corpuscular Hemoglobin 28 pg (25-35) Mean Corpuscular Hemoglobin Concent 33 g/dL (31-37) Red Cell Distribution Width 14.5 % (11.5-14.5) Platelet Count 172 x10^3/uL (140-400) Neutrophils (%) (Auto) 88 % (31-73) Lymphocytes (%) (Auto) 8 % (24-48) Monocytes (%) (Auto) 4 % (0-9) Eosinophils (%) (Auto) 0 % (0-3) Basophils (%) (Auto) 0 % (0-3) Neutrophils # (Auto) 10.2 x10^3/uL (1.8-7.7) Lymphocytes # (Auto) 0.9 x10^3/uL (1.0-4.8) Monocytes # (Auto) 0.4 x10^3/uL (0.0-1.1) Eosinophils # (Auto) 0.0 x10^3/uL (0.0-0.7) Basophils # (Auto) 0.0 x10^3/uL (0.0-0.2) Segmented Neutrophils % 75 % (35-66) Band Neutrophils % 7 % (0-9) Lymphocytes % 12 % (24-48) Monocytes % 5 % (0-10) Basophils % 1 % (0-3) Toxic Vacuolation Slight Platelet Estimate Adequate (ADEQUATE) Sodium Level 138 mmol/L (136-145) Potassium Level 4.4 mmol/L (3.5-5.1) Chloride Level 103 mmol/L (98-107) Carbon Dioxide Level 28 mmol/L (21-32) Anion Gap 7 (6-14) Blood Urea Nitrogen 6 mg/dL (7-20) Creatinine 0.9 mg/dL (0.6-1.0) Estimated GFR (Cockcroft-Gault) 70.8 Glucose Level 139 mg/dL (70-99) Calcium Level 8.3 mg/dL (8.5-10.1) Laboratory Tests Test 01/14/21 16:48 01/15/21 02:18 01/15/21 03:50 01/15/21 07:40 Glucose (Fingerstick) 157 mg/dL (70-99) 146 mg/dL (70-99) 125 mg/dL (70-99) White Blood Count 11.7 x10^3/uL (4.0-11.0) Red Blood Count 4.34 x10^6/uL (3.50-5.40) Hemoglobin 12.2 g/dL (12.0-15.5) Hematocrit 36.8 % (36.0-47.0) Mean Corpuscular Volume 85 fL (79-100) Mean Corpuscular Hemoglobin 28 pg (25-35) Mean Corpuscular Hemoglobin Concent 33 g/dL (31-37) Red Cell Distribution Width 14.5 % (11.5-14.5) Platelet Count 172 x10^3/uL (140-400) Neutrophils (%) (Auto) 88 % (31-73) Lymphocytes (%) (Auto) 8 % (24-48) Monocytes (%) (Auto) 4 % (0-9) Eosinophils (%) (Auto) 0 % (0-3) Basophils (%) (Auto) 0 % (0-3) Neutrophils # (Auto) 10.2 x10^3/uL (1.8-7.7) Lymphocytes # (Auto) 0.9 x10^3/uL (1.0-4.8) Monocytes # (Auto) 0.4 x10^3/uL (0.0-1.1) Eosinophils # (Auto) 0.0 x10^3/uL (0.0-0.7) Basophils # (Auto) 0.0 x10^3/uL (0.0-0.2) Segmented Neutrophils % 75 % (35-66) Band Neutrophils % 7 % (0-9) Lymphocytes % 12 % (24-48) Monocytes % 5 % (0-10) Basophils % 1 % (0-3) Toxic Vacuolation Slight Platelet Estimate Adequate (ADEQUATE) Sodium Level 138 mmol/L (136-145) Potassium Level 4.4 mmol/L (3.5-5.1) Chloride Level 103 mmol/L (98-107) Carbon Dioxide Level 28 mmol/L (21-32) Anion Gap 7 (6-14) Blood Urea Nitrogen 6 mg/dL (7-20) Creatinine 0.9 mg/dL (0.6-1.0) Estimated GFR (Cockcroft-Gault) 70.8 Glucose Level 139 mg/dL (70-99) Calcium Level 8.3 mg/dL (8.5-10.1) Brief Hospital Course Ms. Briceño is a 35 old female who presented with known endometriosis and pelvic pain desiring definitive therapy. She underwent the LAVH/BSO yesterday without complications. Overnight she had a syncopal episode and fell having the RN find her on the floor about 0200 this am. She had normal electrolytes, blood glucose, hemaglobin and responded to fluid bolus also. Hospitalist was consulted and head CT was also done and was negative this am also. She had scant VB, was tolerating PO when I saw her and urinating well. AFVSS so once hospitalist saw her and was ok with discharge she was sent home. Assessment Assessment POD#1 s/p LAVH/BSO syncopal episode this am [address], normal lytes, blood glucose, hemaglobin seen by hospitalist and cleared for discharge Routine PO care d/c to home NPV x 6 weeks light/limited activity x 2 weeks no lifting>15lbs keep scheduled follow up in one week already has narcotic pain med yuliana or return sooner for any other questions or concerns not limited to but including, pain unrelieved with pain meds, increased or unexplained VB, T>100.4 Discharge Information Condition at Discharge: Stable Follow Up: Weeks Disposition/Orders: D/C to Home Scheduled Aripiprazole (Abilify) 20 Mg Tablet, 1 TAB PO DAILYWBKFT for antipsychotic for 30 Days, #30 Ref 0 (Reported) Entered as Reported by: JULIANNE ZEE on 05/07/20 1259 Last Taken: Unknown Dose on 01/14/21 0600 Last Action: Converted on 01/15/211137 by NIAL CASTLE Clonazepam (Clonazepam) 1 Mg Tablet, 1 MG PO TID for FOR ANXIETY, (Reported) Entered as Reported by: JULIANNE ZEE on 05/07/20 1302 Last Taken: Unknown Dose on 01/14/21 0600 Last Action: Converted on 01/15/211137 by NIAL CASTLEROY Dextroamphetamine/Amphetamine (Adderall 10 Mg Tablet) 10 Mg Tablet, 10 MG PO BID for ADD, (Reported) Entered as Reported by: CORRIE DENNIS on 01/09/21 1150 Last Taken: Unknown Dose on 01/14/21 Last Action: Converted on 01/15/211137 by NIAL CASTLE Ferrous Sulfate (Iron) 325 Mg Tablet, 1 TAB PO DAILY for anemia for 30 Days, #30 Ref 0 (Reported) Entered as Reported by: JULIANNE ZEE on 05/07/20 1303 Last Action: Continued on 01/15/218 by NIADayna CASTLEROY Gabapentin (Gabapentin ) 300 Mg Capsule, 300 MG PO TID for takes for "mental illness", (Reported) Entered as Reported by: JULIANNE ZEE on 05/07/20 1301 Last Taken: Unknown Dose on 01/14/21 0600 Last Action: Continued on 01/15/21 1138 by NIADayna CASTLEROY Lamotrigine (Lamotrigine) 200 Mg Tab.er.24, 1 TAB PO DAILY for mental illness for 30 Days, #30 Ref 0 (Reported) Entered as Reported by: JULIANNE ZEE on 05/07/20 1301 Last Taken: Unknown Dose on 01/14/21 0600 Last Action: Converted on 01/15/211137 by MICHELET LIU Metformin Hcl (Metformin Hcl) 500 Mg Tablet, 500 MG PO BIDWMEALS for ANTI- DIABETIC, Ref 0 (Reported) Entered as Reported by: JULIANNE ZEE on 05/07/20 1258 Last Taken: Unknown Dose on 01/13/21 1700 Last Action: Continued on 1137 by MICHELET LIU Patient Instructions Patient Instructions POD#1 s/p LAVH/BSO syncopal episode this am [address], normal lytes, blood glucose, hemaglobin seen by hospitalist and cleared for discharge Routine PO care d/c to home NPV x 6 weeks light/limited activity x 2 weeks no lifting>15lbs keep scheduled follow up in one week already has narcotic pain med yuliana or return sooner for any other questions or concerns not limited to but including, pain unrelieved with pain meds, increased or unexplained VB, T>100.4 Justicifation of Admission Dx: Justifications for Admission: Justification of Admission Dx: Yes KAILASH GASPAR MD Jan 15, 2021 14:33
[2021-01-15] MEDS ORDERED: metFORMIN 500 MG TABLET PO SCH (17:00)
[2021-01-15] MEDS ORDERED: NON FORMULARY ITEM (Dextroamphetamine/Amphetamine (Adderall 10 Mg Tablet) 10 MG) PO SCH (21:00)
--- NOTE | 2021-01-16 15:08 | PATHOLOGY ---
[facility] Accession Number: [id number] . 01 Material submitted: . uterus - UTERUS,CERVIX,BILATERAL TUBES AND OVARIES. Modifiers: bilateral . 01 Clinical history: . ENDOMETRIOISIS . 02 Diagnosis: Uterus and attached bilateral fallopian tube and ovaries, laparoscopic assisted vaginal hysterectomy with bilateral salpingo-oophorectomy: - Mild chronic inflammation and focal hypercornification of exocervix. - Chronic cervicitis with focal immature squamous metaplasia. - Endocervical gland tunnel cluster, endocervix. - Small stellate endometrial cavity with fibrosis and minimal residual attenuated endometrium. - Congestion of bilateral fallopian tubes. - Few cystic follicles and small simple serous cysts of right ovary. - Few cystic follicle and several small serous cysts of left ovary. (JPM:[facility] 01/16/2021) [facility] 01/16/2021 1357 Local . 02 Comment: There is no atypia or evidence of malignancy. (JP:[facility] 01/16/2021) . 02 Electronically signed: . Joseph Domingo MD, Pathologist NPI- [id number] . 01 Gross description: . Received in formalin labeled "America Briceño, uterus, cervix, bilateral tubes, ovaries" is a hysterectomy specimen with attached bilateral adnexa. The uterus weighs 71 g and measures 9.0 cm from fundus to cervix, 5.5 cm from cornu to cornu, and 4.6 cm from anterior to posterior. The serosa is pink-davis and smooth. The ectocervix is pink-davis and glistening with an ovoid cervical os measuring 1.2 x 0.7 cm. The cervix is probed patent and the uterus is opened to reveal a 3.5 x 0.8 cm endocervical canal and a 2.8 x 1.0 cm endometrial cavity. The endometrial cavity is stellate and fibrotic. The average endometrial thickness is less than 0.1 cm and the average myometrial thickness is 2.1 cm. No lesions are identified. The right fallopian tube measures 4.1 x 0.9 cm and the left fallopian tube measures 3.8 x 0.9 cm. The fallopian tubes have pink-davis smooth external surfaces and are sectioned to reveal pinpoint lumens. The right ovary weighs 4 g and measures 3.0 x 2.1 x 1.7 cm. The left ovary weighs 5 g and measures 2.8 x 2.7 x 1.6 cm. The ovaries have davis-white cerebriform external surfaces. The right ovary is sectioned to reveal multiple thin-walled cysts ranging from 0.4-0.7 cm in greatest dimension. The left ovary is sectioned to reveal multiple thin-walled simple cysts ranging from 0.2-0.5 cm in greatest dimension and multiple corpora lutea ranging from 0.4-0.6 cm in greatest dimension. . Seismic [employer] Assistant sections are submitted as follows A1 12:00 cervix A2 6:00 cervix A3 anterior endomyometrium A4 posterior endomyometrium A5 right fallopian tube A6 left fallopian tube A7-A8 right ovary A9-A10 [place] [place] [facility] 01/16/2021 1353 Local . 02 Pathologist provided ICD-10: N72, N87.9, N83.202, N83.201 . 02 CPT . 429196 Specimen Comment: Report sent to / Performed at: 01 [facility] [address], [place] [id number] MD Abhishek Jones MD Phone: [phone] Performed at: 02 [facility] [address] [place], [place] [id number] MD Joseph Domingo MD Phone: [phone]
== END 2021-01-15 11:59 | disposition home or self-care (01) ==
LOC: SURG 08:22 → 4 SOUTHEST 13:15 → 5 NORTH 01-15 04:00
PROVIDERS: ADMIT Obstetrics & Gynecology; ATTEND Obstetrics & Gynecology
DX: N92.0 Excessive and frequent menstruation with regular cycle (principal); N80.9 Endometriosis, unspecified; F41.9 Anxiety disorder, unspecified; G43.909 Migraine, unspecified, not intractable, without status migrainosus; I87.8 Other specified disorders of veins; N39.0 Urinary tract infection, site not specified; N94.6 Dysmenorrhea, unspecified; Z79.899 Other long term (current) drug therapy
CPT/HCPCS: 36415; 58552; 70450; 80048; 81025; 82962; 85007; 85025; 86850; 86900; 86901; 88307; 96361; 96374; G0378; G0379; J0690; J1100; J1170; J1815; J2250; J2270; J2405; J2704; J2710; J3010; J3480; J3490